=== PATIENT | male | born 1990 | race Caucasian/White ===

== ENCOUNTER 2016-07-10 19:15 | Emergency (ER) | payer OTHER ==
[~2016-07-10] VITALS: Ht 182.9 cm; Wt 84.0 kg
[2016-07-10 20:06] VITALS: BP 145/85
== END 2016-07-10 20:07 | disposition home or self-care (01) ==
LOC: EME 19:15
DX: F41.9 Anxiety disorder, unspecified (principal); F31.9 Bipolar disorder, unspecified; F17.200 Nicotine dependence, unspecified, uncomplicated; Z71.6 Tobacco abuse counseling
CPT/HCPCS: 90837; 99281; 99285

== ENCOUNTER 2016-07-14 09:08 | Inpatient (IN) | payer OTHER ==
[~2016-07-14] VITALS: Ht 182.9 cm; Wt 105.0 kg
[2016-07-14 10:34] LABS: AMPHETAMINE NEGATIVE (500 ng/mL); BARBITURATES NEGATIVE (200 ng/mL); BENZODIAZEPINES NEGATIVE (150 ng/mL); COCAINE NEGATIVE (150 ng/mL); INTERNAL CONTROLS VALID? YES; METHADONE NEGATIVE (200 ng/mL); METHAMPHETAMINE NEGATIVE (500 ng/mL); OPIATES (MORPHINE) NEGATIVE (100 ng/mL); OXYCODONE NEGATIVE (100 ng/mL); PHENCYCLIDINE NEGATIVE (25 ng/mL); PROPOXYPHENE NEGATIVE (300 ng/mL); THC CANNABINOIDS NEGATIVE (50 ng/mL); TRICYCLIC ANTIDEPRESSANTS NEGATIVE (300 ng/mL)
[2016-07-14 11:09] LABS: EOSINOPHIL (%) 1.7 % (0-5); EOSINOPHIL COUNT 0.2 K/uL (0-0.3); HEMATOCRIT 51.3 % (38.0-50.0); IMMATURE GRANULOCYTE (%) 0.1 % (0.0-0.7); IMMATURE GRANULOCYTE COUNT 0.1 K/uL; LYMPHOCYTE COUNT 1.5 K/uL (1.0-2.8); MCH 30.4 PG (29.0-34.0); MCHC 34.9 G/DL (30.0-36.0); MCV 87.1 FL (86-99); MEAN PLAT.VOLUME 12.5 uM^3 (9.0-12.4); MONOCYTE (%) 6.9 % (3-12); MONOCYTE COUNT 0.7 K/uL (0-0.8); NEUTROPHIL (%) 75.2 % (45-76); NEUTROPHIL COUNT 7.1 K/uL (1.8-6.4); PLATELET COUNT 172 K/uL (156-360); RBC DIS.WIDTH-CV 12.9 % (11.8-14.6); RBC DIS.WIDTH-SD 40.5 % (39-53); RED BLOOD COUNT 5.89 M/uL (4.00-5.50); WHITE BLOOD COUNT 9.5 K/uL (4.1-10.2)
[2016-07-14 11:40] LABS: ANION GAP 10 MEQ/L (2-14); CHLORIDE 106 MEQ/L (99-109); POTASSIUM 3.5 MEQ/L (3.7-5.4); SAMPLE HEMOLYSIS CHECK 0; SAMPLE ICTERIC CHECK 0; SAMPLE LIPEMIA CHECK 0; SODIUM 142 MEQ/L (136-147)
[2016-07-14 11:54] LABS: GFR ESTIMATE (CALCULATED) > 59 mL/min/; GLUCOSE 82 mg/dL (70-99); SERUM ETHYL ALCOHOL < 10 mg/dL; UREA NITROGEN (BUN) 9 mg/dL (9-23)
[2016-07-14 13:56] VITALS: BP 131/69
[2016-07-14 13:57] VITALS: BP 131/69
[2016-07-14 15:30] VITALS: BP 142/81
[2016-07-15 07:49] VITALS: BP 121/70
[2016-07-15 15:49] VITALS: BP 108/54
[2016-07-16 07:41] VITALS: BP 132/65
[2016-07-16 15:42] VITALS: BP 131/86
[2016-07-16 22:30] LABS: POINT-OF-CARE METER ID UU13113830
[2016-07-17] MEDS ORDERED: SERTRALINE HCL50 MG PO (09:24)
[2016-07-17 09:30] VITALS: BP 135/63
== END 2016-07-17 10:31 | disposition home or self-care (01) | DRG 885 ==
LOC: EME 09:08 → EDOF 12:02 → 1WEST 12:02
PROVIDERS: Physician Assistant; Psychiatry & Neurology Psychiatry
DX: F39 Unspecified mood [affective] disorder (principal); F17.210 Nicotine dependence, cigarettes, uncomplicated; R45.851 Suicidal ideations; F63.9 Impulse disorder, unspecified
CPT/HCPCS: 80048; 82948; 85025; 90839; 97150 GO; 97166 GO; 99281; 99284; G0480; Q0177